=== PATIENT | female | born 1955 | race Two or more races ===

== ENCOUNTER 2024-02-06 08:49 | Outpatient (AMB) | payer MEDICARE, SELFPAY ==
[2024-02-06 09:17] VITALS: BMI 45.4
--- NOTE | 2024-02-06 09:17 | A.OFFVIS_ITS ---
VS Expanded 02/06/24 09:17 02/19/24 12:58 Height 5 ft 2 in 5 ft 2 in Weight 248 lb 0.321 oz 248 lb BMI 45.4 45.4 Intake Visit Reasons: morbid obesity Nutrition Presentation Details: Pt presents for MNT for obesity and T2DM and obesity. Pt was referred by Dr. Alvares from Orthopedic surgery to work on weight loss related to bilateral knee osteoarthritis , goal bmi of 40. Pt is accompanied by her daughter. Participates in the quality life prog in [facility] Reports her typical meals consist of B: coffee with milk ,eggs or crackers ham/cheese or cornflakes cereal with milk L: rice and cod no vegetables and glass of milk 5 pm sancocho, carrots/yautia/banana /malanga/wings no rice, water 8 pm yogurt activia physical activity: sedentary ETOH/SMoking: denies Pt reports she is unable to lose weight and was advised by MD to work on weight loss related to osteoarthritis BS Monitoring Most Recent Diabetes Results: No Data to Display BDH-Joydslp-Jx.Jeor Equation Height: 5 ft 2 in Weight: 248 lb Resting Metabolic Rate: 1617.39 Calculated Activity Level: Sedentary Calories Needed to Maintain Weight: 1940.87 Diagnosis Nutrition problem #1: food nutri know defi As related to (etiology) #1: diagnosis As evidenced by (sign/symptom) #1: knowledge deficit of diet Learning/Education Readiness to learn: fair Assessment & Plan Assessment & Plan (1) T2DM (type 2 diabetes mellitus): Code(s): E11.9 - Type 2 diabetes mellitus without complications Category: Medical Plan: Wt: 113 Kg ( 01/2024 ) Est kcal needs as per MSJ: 1900 (40% carb, 30% protein/fat) Est fluid needs as per 25-30 ml/d: 2800 Est prot per day as per 1 g/kg bw: 113 Recommend fiber intake : 8-10 g per day and gradually increase to 25-28 g per day for women and 35-38 g for men or as tolerated Recommend sodium intake per day : less than 2000 mg Educated patient on: ( R = reviewed V = verbalizes understanding N/R = needs review N/A = not applicable * Food sources of carbohydrate, adequate serving sizes and its role in various health conditions: R * Differences between complex carbohydrates a simple carbohydrates, role of fiber in diet: R V N/R * Lean protein sources of foods: R V NR * Differences between types of fats and role in diet (mono on saturated fat fatty acids, saturated fatty acids, trans fats): R V N/R * Food sources of sodium in salt and healthy modifications for heart health in kidney health: R V R/V * Vitamins and minerals: R V N/R * Healthy plate method concept: R * mindful eating : R * Physical activity: Benefits a precaution: R V N/R * Hypoglycemia protocol (rule of 15): R * Dietary prevention of Hyperglycemia: R V R/V Patient Instructions: Have one meal replacement per day - see list of options Balance dinner following healthy plate method Practice mindful eating Reduce on sugars (beverages/desserts and similar foods) Coding Level of Care Code Nutr Indiv Intake (32769) Diagnoses T2DM (type 2 diabetes mellitus) E11.9 Time Spent (min) 30
[2024-02-19 12:58] VITALS: BMI 45.4
== END 2024-02-06 10:04 | disposition home or self-care (01) ==
PROVIDERS: Visit Provider Dietitian, Registered
DX: E11.9 Type 2 diabetes mellitus without complications (principal)

== ENCOUNTER → 2024-02-06 08:49 | Outpatient (BNVA) | payer MEDICARE, SELFPAY | PROVIDERS: Visit Provider Dietitian, Registered | DX: E11.9 Type 2 diabetes mellitus without complications (principal); E66.01 Morbid (severe) obesity due to excess calories; Z68.42 Body mass index [BMI] 45.0-49.9, adult | CPT/HCPCS: 97802 ==